=== PATIENT | male | born 1935 | race Caucasian/White ===

== ENCOUNTER 2017-02-26 12:17 | Emergency (ER) | payer OTHER, BC ==
[2017-02-26 12:21] VITALS: BP 130/68; PULSE 63; TEMP 98.1; BMI 22.8
[2017-02-26] MEDS ORDERED: ERYTHROMYCIN 0.5% OPHTHALMIC OINTMENT 3.5 GM TUBE OD ONE (14:16)
[2017-02-26] MEDS ORDERED: ERYTHROMYCIN 0.5% OPHTHALMIC OINTMENT 3.5 GM TUBE ONE (14:17)
--- NOTE | 2017-02-26 14:23 | PDOC ---
History of Present Illness - General Chief Complaint: Eye Problem Stated Complaint: EYE PROBLEM Time Seen by Provider: 02/26/17 13:43 History Source: Patient Exam Limitations: No Limitations - History of Present Illness Initial Comments: 02/26/17 14:17 02/26/17 14:27 Chief complaint: Discomfort in the right eye since this morning questionable foreign body History of present illness: Patient is a 81-year-old male with a history of chronic lower back pain, hearing loss here today complaining of waking up this morning feeling as if something was in his right eye. Patient was outside yesterday thinks possibly could've gotten something in his eye because it was windy however patient did not feel anything yesterday. Patient reports that he tried to rinse out his eye with eyewash with warm water this morning however this did not improve the discomfort. Patient denies any tearing or photophobia. Patient denies any visual changes. Patient wears bifocals. 02/26/17 14:31 02/26/17 14:31 Timing/Duration: other (unchanged) Severity: mild Associated Symptoms: reports: denies symptoms Past History - Past Medical History Allergies/Adverse Reactions: Allergies Allergy/AdvReac Type Severity Reaction Status Date / Time No Known Allergies Allergy Verified 02/26/17 12:22 Home Medications: Ambulatory Orders NK [No Known Home Medication] 05/13/15 GI Disorders: Yes (IBS) - Surgical History Cholecystectomy: Yes GI Surgery: Yes (X 2 hernia repairs) - Psycho/Social/Smoking Cessation Hx Anxiety: No Suicidal Ideation: No Smoking History: Former smoker Have you smoked in the past 12 months: No If you are a former smoker, when did you quit?: 53 YRS Information on smoking cessation initiated: No Hx Alcohol Use: No Drug/Substance Use Hx: No Substance Use Type: None Review of Systems - Review of Systems Able to Perform ROS?: Yes Constitutional: No: Symptoms Reported HEENTM: Yes: Eye Pain (right discomfort when blinking ), Other (no photophobia) . No: Blurred Vision, Tearing Respiratory: No: Symptoms reported Cardiac (ROS): No: Symptoms Reported ABD/GI: No: Symptoms Reported : No: Symptoms Reported Musculoskeletal: No: Symptoms Reported Integumentary: No: Symptoms Reported Neurological: No: Symptoms reported *Physical Exam - Vital Signs Last Vital Signs Temp Pulse Resp BP Pulse Ox 98.1 F 63 20 130/68 97 02/26/17 12:18 02/26/17 12:18 02/26/17 12:18 02/26/17 12:18 02/26/17 12:18 - Physical Exam General Appearance: Yes: Appropriately Dressed HEENT: positive: EOMI, RODRIGO, Other (no foreign body noted rt. eye, no corneal abrasion noted ). negative: Photophobia Neck: negative: Lymphadenopathy (R), Lymphadenopathy (L) Respiratory/Chest: positive: Lungs Clear, Normal Breath Sounds. negative: Chest Tender, Respiratory Distress Cardiovascular: positive: Regular Rhythm, Regular Rate, S1, S2 Integumentary: positive: Normal Color Procedures - Consent Consent obtained: From Patient - Additional Procedures Progress: 02/26/17 14:34 Tetracaine 0.3% ophthalmic solution 1 drop applied right eye Fluorescene stain applied right eye Using slit lamp no foreign body noted right eye or corneal abrasion rt. eye Medical Decision Making - Medical Decision Making 02/26/17 14:31 02/26/17 14:32 Patient is a 81-year-old male with a history of chronic lower back pain, hearing loss here today complaining of waking up this morning feeling as if something was in his right eye. Patient was outside yesterday thinks possibly could've gotten something in his eye because it was windy however patient did not feel anything yesterday. Patient reports that he tried to rinse out his eye with eyewash with warm water this morning however this did not improve the discomfort. Patient denies any tearing or photophobia. Patient denies any visual changes. Patient wears bifocals. RIGHT EYE DISCOMFORT PLAN: NO FOREIGN body noted tetracaine 0.3% opth simona one drop rt. eye fluorescene stain applied will use use to give pt. comfort erythromcyin 0.5% opth oint 1/2 inch applied now than q 6 hr for 5 days follow up with optho 02/26/17 14:36 *DC/Admit/Observation/Transfer Diagnosis at time of Disposition: Irritation of eye - Discharge Dispostion Disposition: HOME Condition at time of disposition: Stable - Referrals Referrals: Kelechi Kwon [Staff Physician] - Shun Beck MD [Primary Care Provider] - - Patient Instructions Additional Instructions: Follow up with Dr. Kwon tomorrow, or if unable to get appointment with him follow-up with Dr. Andre Return to emergency room if symptoms worsen apply half an inch of erythromycin of vomiting ointment to right eye inside lower leg every 6 hours 5 days Return to emergency room if symptoms worsen or new symptoms develop Patient voiced understanding of discharge instructions and all questions were answered
== END 2017-02-26 14:25 | disposition home or self-care (01) ==
LOC: JERFT 12:17
DX: H57.11 Ocular pain, right eye (principal); M54.5 Low back pain; G89.29 Other chronic pain
CPT/HCPCS: 99281-25

== ENCOUNTER 2017-04-14 10:22 | Emergency (ER) | payer OTHER, BC ==
[2017-04-14 10:44] VITALS: BP 137/84; BMI 51.0
--- NOTE | 2017-04-14 11:05 | PDOC ---
Attending Attestation - Resident Resident Name: ConstantinoLaron - ED Attending Attestation I have performed the following: I have examined & evaluated the patient, The case was reviewed & discussed with the resident, I agree w/resident's findings & plan, Exceptions are as noted - HPI HPI: 82 yo M history polymyalgia rheumatica, spinal stenosis, sciatica, DJD, IBS, scoliosis, arthritis presents with L hip and low back pain occurring last night. Denies numbness, weakness. He had difficulty walking, as attempting to bear weight on the leg caused severe pain. The pain is much better today, but in light of his history, he presented for evaluation. Denies any direct trauma. No fever, skin rashes. - Physicial Exam PE: GENERAL: Awake, alert, and fully oriented, in no acute distress HEAD: No signs of trauma EYES: PERRLA, EOMI, sclera anicteric, conjunctiva clear ENT: Auricles normal inspection, hearing grossly normal, nares patent, oropharynx clear without exudates. Moist mucosa NECK: Normal ROM, supple, no lymphadenopathy, JVD, or masses LUNGS: Breath sounds equal, clear to auscultation bilaterally. No wheezes, and no crackles HEART: Regular rate and rhythm, normal S1 and S2, no murmurs, rubs or gallops ABDOMEN: Soft, nontender, normoactive bowel sounds. No guarding, no rebound. No masses EXTREMITIES: Normal range of motion, no edema. No clubbing or cyanosis. No cords, erythema, or tenderness NEUROLOGICAL: Cranial nerves II through XII grossly intact. Normal speech, normal gait SKIN: Warm, Dry, normal turgor, no rashes or lesions noted. - Medical Decision Making Pain is not reproducible on exam, however, it localizes to L iliac wing. Will obtain XR L hip and pelvis to r/o fx, as he is on chronic steroids.
--- NOTE | 2017-04-14 12:33 | PDOC ---
History of Present Illness - General Chief Complaint: Back Pain Stated Complaint: BACK PAIN Time Seen by Provider: 04/14/17 10:46 - History of Present Illness Initial Comments: 04/14/17 12:27 82M w/ hx of PMR on prednisone 5mg for past 7 years, spinal stenosis, sciataca, arthritis, scoliosis, and degenerative disc disease presents with left back pain for past day. Pt reports that he developed severe pain after stepping into his bathtub last night. He states that his pain was 10/10, radiating down his left leg to his popliteal fossa, constant, improved mildly with tramadol and cold packs and lying down, worsened by standing and sitting, and burning in quality. Pt reports having difficulty sleeping last night due to the pain. He denies urine or bowel incontinence, spinal anesthesia, and fevers. 04/14/17 13:51 Past History - Past Medical History Allergies/Adverse Reactions: Allergies Allergy/AdvReac Type Severity Reaction Status Date / Time No Known Allergies Allergy Verified 04/14/17 11:18 Home Medications: Ambulatory Orders Aleve 220 mg PO DAILY 04/14/17 Calcium 600 + Vit D Tablet 600 mg PO DAILY 04/14/17 Cholestyramine Packet 1 mg PO DAILY 04/14/17 Melatonin 10 mg Tablet 10 mg PO DAILY 04/14/17 Prednisone 5 mg PO DAILY 04/14/17 Tramadol-Acetaminophn 37.5-325 3.75 mg PO DAILY 04/14/17 GI Disorders: Yes (IBS) Comment:: 04/14/17 12:33 04/14/17 12:34 04/14/17 12:35 PMH: IBS PSH: 2 hernias and a cholecystectomy Meds: prednisone 5mg, tramadol, melatonin, cholesyramine, galantamine, aleve, calcium, glucosamine, famotidine Allergies: NKDA Social Hx: denies toxic habits 04/14/17 12:36 - Surgical History Cholecystectomy: Yes GI Surgery: Yes (X 2 hernia repairs) - Psycho/Social/Smoking Cessation Hx Anxiety: No Suicidal Ideation: No Smoking History: Unknown if ever smoked Have you smoked in the past 12 months: No If you are a former smoker, when did you quit?: 53 YRS Information on smoking cessation initiated: No Hx Alcohol Use: No Drug/Substance Use Hx: No Substance Use Type: None Review of Systems - Review of Systems Comments:: 04/14/17 12:35 GENERAL: No fever, night sweats, or weakness. HEAD, EYES, EARS, NOSE AND THROAT: No change in vision, ear pain, or sore throat CARDIOVASCULAR: No chest pain or palpitations RESPIRATORY: No cough, wheezing, or hemoptysis. GASTROINTESTINAL: No nausea, vomiting, + diarrhea, no constipation, or blood in the stool. GENITOURINARY: No dysuria, frequency, or urgency MUSCULOSKELETAL: + joint and muscle pain. SKIN: No rashes or pruritis ENDOCRINE: No increased thirst. No abnormal weight change NEUROLOGIC: No headache, dizziness, loss of consciousness, or change in strength /sensation. *Physical Exam - Vital Signs Last Vital Signs Temp Pulse Resp BP Pulse Ox 62 18 137/84 100 04/14/17 10:35 04/14/17 10:35 04/14/17 10:35 04/14/17 10:35 - Physical Exam Comments: 04/14/17 12:36 04/14/17 12:36 GENERAL: Awake, alert, and fully oriented, in mild distress HEAD: normocephalic, atraumatic HEENT: PERRLA, EOMI NECK: Normal ROM, supple, no lymphadenopathy, JVD, or masses HEART: Regular rate and rhythm, normal S1 and S2, no murmurs, rubs or gallops, peripheral pulses normal and equal bilaterally. LUNGS: CTAB, no wheezing, no rales Back: nontender over vertebrae, no crepitus, tender to palpation over left flank and left iliac wing, +straight left leg raise test when supine and sitting causing radiating pain down left leg when leg raised to 45 degrees. ABDOMEN: Soft, nontender, nondistended, normoactive bowel sounds. No guarding, no rebound. No masses EXTREMITIES: no edema. SKIN: Warm, dry NEUROLOGICAL: Cranial nerves II through XII grossly intact. Normal speech 04/14/17 13:51 ED Treatment Course - RADIOLOGY Radiology Studies Ordered: Category Date Time Status HIP & PELVIS-LEFT [RAD] Stat Radiology 04/14/17 12:25 Ordered Medical Decision Making - Medical Decision Making 04/14/17 13:51 82M w/ hx of PMR on prednisone 5mg for past 7 years, spinal stenosis, sciataca, arthritis, scoliosis, and degenerative disc disease presents with acute left back s/p stepping into shower. Exam notable for left lower back pain without crepitus, but + straight left leg raise. muscle strain vs. acute fracture -hip/pelvis radiograph: shows no acute fractures *DC/Admit/Observation/Transfer Diagnosis at time of Disposition: Muscle strain - Discharge Dispostion Disposition: HOME Condition at time of disposition: Stable Admit: No - Patient Instructions Printed Discharge Instructions: Muscle Strain, Low Back Pain Additional Instructions: The cause of your lower back pain was found to not be an acute fracture on radiography. Given your history and physical exam, the cause is likely a muscle strain. Please ambulate as tolerated. Please see your PMD within 3 days to follow up. Please return to ED if you experience bowel or urine incontinence, numbness in pelvic region, fevers, or chills. - Attestations Physician Attestion: 04/14/17 13:56 I, Dr. aLron Meeks, attest that this document has been prepared under my direction and personally reviewed by me in its entirety. I further attest, that it accurately reflects all work, treatment, procedures and medical decision -making performed by me.
[2017-04-14 14:11] VITALS: PULSE 68
== END 2017-04-14 14:12 | disposition home or self-care (01) ==
LOC: JER 10:22
DX: S39.012A Strain of muscle, fascia and tendon of lower back, initial encounter (principal); X58.XXXA Exposure to other specified factors, initial encounter; Y93.E1 Activity, personal bathing and showering; Y92.002 Bathroom of unspecified non-institutional (private) residence as the place of occurrence of the external cause; M48.00 Spinal stenosis, site unspecified; F45.41 Pain disorder exclusively related to psychological factors; M19.90 Unspecified osteoarthritis, unspecified site; M41.9 Scoliosis, unspecified; M35.3 Polymyalgia rheumatica; K58.9 Irritable bowel syndrome, unspecified
CPT/HCPCS: 73523-TC; 99282-25